=== PATIENT | female | born 1965 | race Caucasian/White ===

== ENCOUNTER 2020-08-08 01:59 | Observation (INO) | payer BC, SELFPAY ==
[2020-08-08] VITALS (32 sets, daily range): BP systolic 99–139; BP diastolic 48–94; PULSE 72–104; RESP 14–24; TEMP 36.2–37.1; O2SAT 90–100; BMI 20.7
--- NOTE | ~2020-08-08 | XR_ITS ---
EXAMINATION: XR chest 1V portable EXAM DATE: 08/08/2020 02:53 INDICATION: cough, COPD . TECHNIQUE: Portable AP frontal chest x-ray was obtained. There is no prior study for comparison. FINDINGS: Moderate chronic appearing hyperinflation. Narrow cardiac silhouette from hyperinflated samy gs. Scattered biapical opacities, appearance most consistent with scarring but superimposed acute inf ection not excludable. No pneumothorax or pleural effusion. There are no osseous abnormalities identi fied. IMPRESSION: 1. Biapical opacities probably scarring but superimposed acute infection not excludable. 2. Moderate hyperinflation. Reviewed, dictated and finalized at location A. CIATE PROFESSOR OF ART IMPRESSION: 1. Biapical opacities probably scarring but superimposed acute infection not e xcludable. 2. Moderate hyperinflation.
--- NOTE | 2020-08-08 02:14 | ECG_ITS ---
Measurements Intervals [place] Rate: 89 P: 79 ND: 144 QRS: 31 QRSD: 85 T: 56 QT: 351 QTc: 429 Interpretive Statements SINUS RHYTHM POSSIBLE LEFT ATRIAL ENLARGEMENT CANNOT RULE OUT SEPTAL INFARCT, AGE INDETERMINATE BASELINE ARTIFACT- I, II, III ABNORMAL ECG Electronically Signed On 08-08-2020 7:47:28 SUPPLIER RELATIONSHIP DIRECTOR by Berry Echols D.O.
[2020-08-08 02:21] LABS: Basophils Absolute Auto 0.1 K/mm3 (0.0-0.1); Basophils Percent Auto 0.8 % (0.2-1.2); Eosinophils Absolute Auto 0.3 K/mm3 (0-0.3); Hematocrit 41.6 % (37.0-47.0); Hemoglobin 14.7 g/dL (12.0-15.0); Immature Granulocyte Absolute 0.09 K/mm3 (0.00-0.031); Immature Granulocyte Percent A 0.6 % (0-0.5); Lymphocytes Percent Auto 38.7 % (18.3-44.2); Mean Corpuscular HGB Conc 35.3 g/dl (32-36); Mean Corpuscular Hemoglobin 33.1 pg (26-34); Mean Corpuscular Volume 93.7 fl (80-100); Monocytes Absolute Auto 1.1 K/mm3 (0.1-0.6); Monocytes Percent Auto 7.3 % (2.6-8.5); Neutrophils Absolute Auto 7.9 K/mm3 (1.3-6.7); Neutrophils Percent Auto 50.6 % (45.5-73.1); Platelet Count Result 380 k/mm3 (150-375); Red Blood Count 4.44 M/mm3 (4.2-5.4); Red Cell Distribution Width 12.1 % (11.5-14.5); White Blood Count 15.5 K/mm3 (4.5-10.0)
--- NOTE | 2020-08-08 02:26 | ED.GENADULT ---
HPI - General Adult General Chief complaint: Shortness of Breath/Dyspnea Stated complaint: sob Time Seen by Provider: 08/08/20 02:02 Source: RN notes reviewed History of Present Illness HPI narrative: Patient presents to emergency department from home for shortness of breath. Patient states symptoms have been ongoing for the past 5 days and progressively worsening associated with a cough is nonproductive patient states she does have a history of COPD and smokes approximately pack per day denies having any inhalers at home denies any fevers or chills chest pain abdominal pain nausea vomiting diarrhea or any other symptoms Related Data Home Medications Medication Instructions Recorded Confirmed No Home Medications 08/08/20 Allergies Allergy/AdvReac Type Severity Reaction Status Date / Time No Known Allergies Allergy Unverified 08/08/20 02:08 Review of Systems Review of Systems: Narrative: Gen.: Denies fevers or chills ENT: Denies congestion Respiratory: See HPI CV: Denies chest pain or palpitations GI: Denies abdominal pain nausea, emesis or diarrhea Musculoskeletal: Denies back pain or muscle pain Neuro: Denies numbness, tingling, weakness or focal weakness Skin: Denies rash Except as documented, all other systems reviewed and negative [facility] Past Medical History Medical History (Updated 08/08/20 @ 03:52 by Ti Caballero DO) COPD (chronic obstructive pulmonary disease) Social History Social History Smoking status: Heavy tobacco smoker Alcohol intake: current Gender identity (if verbalized by the patient): Female Sexual Orientation (if Verbalized by the Patient): Straight or Heterosexual Exam Narrative: Exam Narrative: APPEARANCE: Moderate respiratory distress nontoxic, resting in bed HEENT: Normocephalic, atraumatic OMM RESPIRATORY: Mild respiratory distress sitting upright speaking short phrases wheezing throughout the bilateral lung rao decreased breath sounds in the bases CARDIOVASCULAR: Regular rate and rhythm without murmurs rubs or gallops. ABDOMINAL: Soft, nontender, nondistended, no rebound or guarding MUSCULOSKELETAl: Moves all extremities. No clubbing, cyanosis or edema. Bilateral calves soft and nontender NEURO: Awake and alert. Following commands, speech normal, no focal deficits SKIN:: Warm, dry. Normal Color PSYCHIATRIC: Normal affect/mood, Course Course Emergency Course: Following breathing treatments repeat lung exam shows patient can have wheezing throughout bilateral lung rao Discussed with Dr. Vivas presentation work-up agrees with admission at this time recommends Covid swab Discussed with patient and family results of workup and diagnosis. Discussed need for admission. Patient and family understand and agree to current treatment plan Vital Signs Vital signs: Vital Signs Temperature 97.1 F L 08/08/20 02:03 Pulse Rate 95 08/08/20 02:03 Respiratory Rate 24 H 08/08/20 02:03 Blood Pressure 139/82 08/08/20 02:03 Pulse Oximetry 93 08/08/20 02:03 Temperature 97.1 F L 08/08/20 02:03 Pulse Rate 85 08/08/20 03:31 Respiratory Rate 18 08/08/20 03:31 Blood Pressure 114/86 08/08/20 03:30 Pulse Oximetry 96 08/08/20 03:31 Medical Decision Making Vital Signs Vital Signs: Vital Signs Temperature 97.1 F L 08/08/20 02:03 Pulse Rate 95 08/08/20 02:03 Respiratory Rate 24 H 08/08/20 02:03 Blood Pressure 139/82 08/08/20 02:03 Pulse Oximetry 93 08/08/20 02:03 Temperature 97.1 F L 08/08/20 02:03 Pulse Rate 85 08/08/20 03:31 Respiratory Rate 18 08/08/20 03:31 Blood Pressure 114/86 08/08/20 03:30 Pulse Oximetry 96 08/08/20 03:31 Lab Data Result diagrams: 08/08/20 02:16 08/08/20 02:16 Labs: Lab Results 08/08/20 08/08/20 Range/Units 02:16 02:16 WBC 15.5 H (4.5-10.0) K/mm3 RBC 4.44 (4.2-5.4) M/mm3 Hgb 14.7
[2020-08-08] MEDS: methylPREDNISolone SOD SUCC 125 MG VIAL IV PUSH (02:32)
[2020-08-08 02:35] LABS: Anion Gap 11 mmol/L (8-16); Blood Urea Nitrogen 7 mg/dL (7-17); Calcium 9.3 mg/dL (8.4-10.2); Carbon Dioxide 27 mmol/L (22-30); Chloride 95 mmol/L (98-107); Estimated CRCL calculation 77 ml/min; Estimated Glomerular Filt Rate > 60; Glucose 101 mg/dL (65-105); Potassium 3.6 mmol/L (3.4-5.0); Sodium 133 mmol/L (137-145)
[2020-08-08] MEDS: ALBUTEROL SULFATE NEB 2.5 MG/0.5 ML INH 5 MG INHALATION ×5 (02:49→15:22)
[2020-08-08] MEDS: IPRATROPIUM BR 0.02% INH SOLN 0.5 MG/2.5 ML VIAL INHALATION ×5 (02:49→15:22)
--- NOTE | 2020-08-08 03:39 | PM.IMHP ---
H&P: HPI History of Present Illness Date/Time: 08/08/20 03:39 Chief Complaint: Dyspnea and wheezing Narrative: Sarahi Win is a 55 year old female with past medical history of tobacco abuse, bronchitis presents to ED with complaints of dyspnea with nonproductive cough. Symptom onset was 5 days ago nonproductive cough. She smokes a pack per day and has been trying to wean down slowly. She denies fever or any other symptoms. She is trying to manage her wheezing, cough, dyspnea with old methylprednisolone that she froze when she had bronchitis years ago. She does not have any inhalers and actually has never been diagnosed with COPD. She does not currently have a primary care provider as well. She takes no home medications. She works at [employer] but does not have any occupational exposures. She has no sick contacts. He has been around anyone with COVID-19. No recent travels. Patient was adopted and has no known family history. In the ED: Patient presented with COPD exacerbation and given Solu-Medrol 125 mg, DuoNeb for respiratory distress respirations 24 and wheezing throughout. She is being tested for COVID-19. Leukocytosis 15.5. Chest x-ray looks clear, hyperinflated consistent with COPD. EKG showed normal sinus rhythm rate 89. Patient admitted for COPD exacerbation requiring IV steroids and breathing treatment. Review of Systems Review of Systems: Narrative: Constitutional: No Fever, No Chills, No Night Sweats, No Fatigue, No Malaise ENT/Mouth: No Hearing Changes, No Ear Pain, No Nasal Congestion, No Sinus Pain, No Hoarseness, No sore throat, No Rhinorrhea, No Swallowing Difficulty Eyes: No Eye Pain, No Redness, No Vision Changes Cardiovascular: No Chest Pain, No Palpitations, No Dyspnea on Exertion, No Orthopnea, No Claudication, No Edema Respiratory: Endorses dyspnea, nonproductive cough, wheezing. Gastrointestinal: No Nausea, No Vomiting, No Diarrhea, No Constipation, No Abdominal Pain, No Heartburn, No Hematochezia, No Melena Genitourinary: No Dysuria, No Urinary Frequency, No Hematuria, No Urinary Incontinence, No Urgency Musculoskeletal: No Arthralgias, No Myalgias, No Joint Swelling, No Joint Stiffness, No Back Pain Skin: No Skin Lesions, No Pruritis, No Hair Changes Neuro: No Weakness, No Numbness, No Paresthesias, No Loss of Consciousness, No Syncope, No Dizziness, No Headache Psych: No Anxiety/Panic, No Depression, No Insomnia Heme: No Bruising, No Bleeding Lymph: No Adenopathy Endocrine: No Polyuria, No Polydipsia, No Temperature Intolerance [facility] Past Medical History Medical History (Updated 08/08/20 @ 04:37 by Maureen Vivas DO) Bronchitis COPD (chronic obstructive pulmonary disease) Surgical History Surgical History (Updated 08/08/20 @ 04:37 by Maureen Vivas DO) History of appendectomy History of cholecystectomy Social History Social History (Updated 08/08/20 @ 04:39 by Maureen Vivas DO) Social History: Does not have a PCP. Independent, active, working. Smoking packs per day: 1.5 Smoking cigarettes per day: 30.0 Smoking status: Heavy tobacco smoker Alcohol intake: current Substance use: never Occupation/Education: occupation Additional occupation/education comments: Works at [employer] Gender identity (if verbalized by the patient): Female Sexual Orientation (if Verbalized by the Patient): Straight or Heterosexual Meds Home Medications and Allergies Home Medications Medication Instructions Recorded Confirmed Type No Home Medications 08/08/20 History Allergies Allergy/AdvReac Type Severity Reaction Status Date / Time No Known Allergies Allergy Unverified 08/08/20 02:08 Vital Signs Vital Signs - 24 hr 08/08/20 02:03 08/08/20 02:08 08/08/20 02:09 Temperature 36.2 C L Pulse Rate 95 88 87 Respiratory Rate 24 H 20 18 Blood Pressure 139/82 130/81 Pulse Oximetry 93 94 93 08/08/20 02:12 08/08/20 02:15 08/08/20
--- NOTE | 2020-08-08 04:55 | ADMGEN ---
This patient, Sarahi Win, was admitted to [facility] Surg Room 302-01. Patient/family oriented to hospital policies and general routines including ID bracelet, bed and alarms, visiting hours, pain management, procedures, bathroom and other care routines, personal items, smoking policy, room service/diet, and visiting hours. Information on how to activate the Rapid Response Team has been discussed. Patient/Family are encouraged to report perceived risks to care and to ask questions if they do not understand what they are told or what they should do.
[2020-08-08] MEDS: methylPREDNISolone SOD SUCC 125 MG VIAL 60 MG IV PUSH ×3 (06:24→17:19)
[2020-08-08] MEDS: ENOXAPARIN 40 MG/0.4 ML SYRINGE SUB-Q (09:11)
[2020-08-08] MEDS: guaiFENesin 600 MG/DEXTROMETHORPHAN 30 MG SR TAB 12 HR 1 TAB PO ×2 (09:11→21:39)
--- NOTE | 2020-08-08 11:41 | PM.IMPN ---
Progress Note: A&P Assessment and Plan (1) Acute exacerbation of chronic obstructive airways disease: Code(s): J44.1 - Chronic obstructive pulmonary disease with (acute) exacerbation Status: Acute Assessment and Plan: Clinical picture is consistent with COPD exacerbation based on smoking history and wheezing. Patient was in respiratory distress, tachypneic and labored requiring 125 mg IV Solu-Medrol in the ED. She is not hypoxic and has been maintaining adequate O2 saturation on room air. She complained she is having difficulty exhaling which would be consistent with emphysema. CXR showed moderate chronic appearing hyperinflation. Continue IV Solu-Medrol 60 mg; wean to q8h. Associated leukocytosis noted. DuoNebs q.6 hours holding off antibiotics with no fever or sputum production checking COVID-19 due to cough and respiratory symptoms; test is pending Incentive spirometer q.1 hour Mucinex for cough (2) COPD (chronic obstructive pulmonary disease): Code(s): J44.9 - Chronic obstructive pulmonary disease, unspecified Status: Acute Assessment and Plan: Patient reports no prior diagnosis of COPD, however clinical picture is highly convincing as well as CXR. She will benefit from outpatient PFTs and she will need to establish with a primary care provider. Her previous PCP retired and she has not had consistent follow-up with the provider since that time. She may benefit from referral to pulmonology. She will need to be prescribed a rescue inhaler and likely a maintenance inhaler. We will evaluate her insurance to find an affordable inhaler. (3) Tobacco abuse: Code(s): Z72.0 - Tobacco use Status: Acute Assessment and Plan: Patient smokes 1 and half packs per day. She has tried quitting in the past and has been unsuccessful. Tried Wellbutrin. Continue to encourage smoking cessation Nicotine patches is available as needed (4) Person under investigation for COVID-19: Code(s): Z20.828 - Contact with and (suspected) exposure to other viral communicable diseases Status: Acute Assessment and Plan: Patient has been tested for COVID-19 given respiratory symptoms. She denies exposure to known COVID-19 positive contacts. She reports compliance with masking and distancing. She is maintaining adequate O2 saturations on room air. CXR findings are not consistent with COVID. Continue isolation precautions while awaiting results Subjective Date/time seen: 08/08/20 11:41 Interval history: Date of service: 08/08/2020 Sarahi Win is a 55-year-old female with history of bronchitis and COPD who is seen in follow-up for COPD exacerbation. She states that she is feeling 100% better today. Her breathing has improved significantly. She denies significant dyspnea. She is able to ambulate around the room without any difficulty or shortness of breath. She is still coughing but is no longer having sputum production. She previously endorsed white sputum production with no odor. She endorses orthopnea but denies PND. She does still feel that she is wheezing. She also endorses sinus congestion. Previously complained of rhinorrhea that has resolved. She has no additional concerns at this time. She denies nausea, vomiting, fever, chills, dizziness, lightheadedness, dysuria, diarrhea, abdominal pain, weakness. Review of Systems Review of Systems: All systems reviewed & are unremarkable except as noted in HPI and below Exam Narrative: Exam Narrative: Ms. Win is a well-nourished, well-appearing 55-year-old female who is lying semi recumbent in bed. She appears comfortable and is in NARD. HR 72, BP 114/86, RR 19, T 97.8?, 92% on room air Neuro: awake, alert and oriented x4, speech clear, no focal neuro deficits noted HEENMT: normocephalic, atraumatic, EOMI, sclerae anicteric, moist oral mucosa, tongue midline, nares patent Neck: supple, no lymphad
[2020-08-08] MEDS: ACETAMINOPHEN 325 MG TABLET 650 MG PO (21:40)
[2020-08-08 22:25] LABS: SARS-CoV-2 RNA PCR Negative
--- NOTE | 2020-08-08 23:04 | PCRCNOTE ---
Window of time for administration has passed. See next scheduled administration.
[2020-08-09] VITALS (7 sets, daily range): BP systolic 104–129; BP diastolic 54–67; PULSE 67–80; RESP 18–20; TEMP 36.2–37.1; O2SAT 94–98
[2020-08-09] MEDS: methylPREDNISolone SOD SUCC 125 MG VIAL 60 MG IV PUSH ×2 (00:03→06:06)
[2020-08-09] MEDS: ALBUTEROL SULFATE NEB 2.5 MG/0.5 ML INH 5 MG INHALATION ×2 (02:51→07:49)
[2020-08-09] MEDS: IPRATROPIUM BR 0.02% INH SOLN 0.5 MG/2.5 ML VIAL INHALATION ×2 (02:52→07:49)
[2020-08-09 06:30] LABS: Basophils Percent Auto 0.2 % (0.2-1.2); Hematocrit 38.5 % (37.0-47.0); Hemoglobin 13.3 g/dL (12.0-15.0); Immature Granulocyte Absolute 0.32 K/mm3 (0.00-0.031); Immature Granulocyte Percent A 1.6 % (0-0.5); Lymphocytes Absolute Auto 1.11 K/mm3 (0.9-3.2); Lymphocytes Percent Auto 5.7 % (18.3-44.2); Mean Corpuscular HGB Conc 34.5 g/dl (32-36); Mean Corpuscular Hemoglobin 32.8 pg (26-34); Mean Corpuscular Volume 94.8 fl (80-100); Mean Platelet Volume 8.4 fl (7.4-10.4); Monocytes Absolute Auto 0.8 K/mm3 (0.1-0.6); Monocytes Percent Auto 3.9 % (2.6-8.5); Neutrophils Absolute Auto 17.3 K/mm3 (1.3-6.7); Neutrophils Percent Auto 88.6 % (45.5-73.1); Platelet Count Result 378 k/mm3 (150-375); Red Blood Count 4.06 M/mm3 (4.2-5.4); Red Cell Distribution Width 12.2 % (11.5-14.5); White Blood Count 19.5 K/mm3 (4.5-10.0)
[2020-08-09 06:55] LABS: Alanine Aminotransferase 22 U/L (4-35); Albumin Level 3.6 g/dL (3.5-5.1); Alkaline Phosphatase 54 U/L (38-126); Anion Gap 6 mmol/L (8-16); Aspartate Amino Transferase 26 U/L (14-36); Bilirubin,Total 0.2 mg/dL (0.2-1.3); Blood Urea Nitrogen 11 mg/dL (7-17); Calcium 9.3 mg/dL (8.4-10.2); Carbon Dioxide 25 mmol/L (22-30); Chloride 102 mmol/L (98-107); Estimated CRCL calculation 76 ml/min; Estimated Glomerular Filt Rate > 60; Glucose 147 mg/dL (65-105); Potassium 4.2 mmol/L (3.4-5.0); Sodium 133 mmol/L (137-145)
[2020-08-09] MEDS: ENOXAPARIN 40 MG/0.4 ML SYRINGE SUB-Q (08:23)
[2020-08-09] MEDS: guaiFENesin 600 MG/DEXTROMETHORPHAN 30 MG SR TAB 12 HR 1 TAB PO (08:24)
[2020-08-09] MEDS: ACETAMINOPHEN 325 MG TABLET 650 MG PO (08:28)
[2020-08-09] MEDS: predniSONE 20 MG TABLET 60 MG PO (11:20)
--- NOTE | 2020-08-09 13:00 | PM.DS ---
DS: Admitting Diagnosis Admitting Diagnosis Admitting Diagnosis: Dyspnea DS: Discharge Diagnosis Discharge Diagnosis (1) Acute exacerbation of chronic obstructive airways disease: Code(s): J44.1 - Chronic obstructive pulmonary disease with (acute) exacerbation Status: Acute Assessment and Plan: Clinical picture is consistent with COPD exacerbation based on smoking history and wheezing. Patient was in respiratory distress, tachypneic and labored requiring 125 mg IV Solu-Medrol in the ED. She was not hypoxic and maintained adequate O2 saturation on room air. She complained of difficulty with complete exhaling which would be consistent with emphysema. CXR showed moderate chronic appearing hyperinflation. she was transition to IV Solu-Medrol 60 mg and weaned to p.o. prednisone 60 mg. She will continue a p.o. prednisone taper for 15 days. She was treated with nebulized breathing treatments. No antibiotics administered as she had no fever or sputum production. Supportive care provided with incentive spirometry and expectorants. (2) COPD (chronic obstructive pulmonary disease): Code(s): J44.9 - Chronic obstructive pulmonary disease, unspecified Status: Acute Assessment and Plan: Patient reports no prior diagnosis of COPD, however clinical picture is highly convincing as well as CXR. She will benefit from outpatient PFTs and referral to pulmonology per her PCP. she has no home medications. She was given prescription for rescue inhaler. She was also given a prescription for a maintenance inhaler. I prescribed her Spiriva, however there was some issues with insurance coverage, and it is unclear if the patient will be able to afford this medication. A coupon was provided to her. I discussed with care coordination, respiratory therapy, and patient's PCP to find suitable options for patient. PCP is aware of situation and she will need to follow-up as an outpatient. If she is not able to get Spiriva, she will need to be started on a suitable alternative maintenance inhaler per PCP. (3) Tobacco abuse: Code(s): Z72.0 - Tobacco use Status: Acute Assessment and Plan: Patient reports smoking 1.5 packs per day for many years. Recently she has tried to cut down and has slowly weaned herself to 8 cigarettes per day. I congratulated her for cutting down. She does want to quit smoking altogether. We discussed at length that quitting smoking Is necessary for COPD and she verbalized understanding. She does not wish to try nicotine patches or other nicotine replacement therapy at this time. I educated her on smoking cessation for 12 minutes. (4) COVID-19 ruled out by laboratory testing: Code(s): Z03.818 - Encounter for observation for suspected exposure to other biological agents ruled out Status: Acute Assessment and Plan: Patient was tested for COVID-19 given respiratory symptoms. She denied exposure to known COVID-19 positive contacts. She reports compliance with masking and distancing. Negative result on 08/08/2020. DS: Summary Hospital Course Reason for hospitalization: COPD exacerbation Hospital Course: date of admission: 08/08/2020 date of discharge: 08/09/2020 Sarahi Win is a 55-year-old female with history of bronchitis and COPD who presented to the emergency department on 08/08/2020 with complaints of increased shortness of breath ongoing for 5 days with progressively worsened nonproductive cough. upon presentation to the ED, she was mildly tachypneic with additional vital signs stable, she had mild leukocytosis, electrolytes were stable, and chest x-ray showed moderate hyperinflation and biapical opacities most likely scarring. She was admitted to the hospitalist service for further evaluation and management. please see above for further details. She was treated with IV steroids and bronchodilators and her symptoms improved. Leukocytosis second
== END 2020-08-09 14:30 | disposition home or self-care (01) ==
LOC: ANHED 03:52 → ANH3MEDSUR 04:09
PROVIDERS: Admitting Provider Student in an Organized Health Care Education/Training Program; Emergency Provider Emergency Medicine; PCP Family Medicine; Visit Provider Family Medicine
DX: J44.1 Chronic obstructive pulmonary disease with (acute) exacerbation (principal); J44.9 Chronic obstructive pulmonary disease, unspecified; F17.210 Nicotine dependence, cigarettes, uncomplicated; Z20.828 Contact with and (suspected) exposure to other viral communicable diseases
CPT/HCPCS: 36415; 71045; 80048; 80053; 85025; 87635; 93005; 94640; 96372; 96374; 96376; 99285; A9270; C9803; G0378; J1650; J2930; J7512; U0003

== ENCOUNTER 2024-05-21 10:28 | Emergency (ER) | payer BC, SELFPAY ==
--- NOTE | ~2024-05-21 | XR_ITS ---
EXAMINATION: XR chest 2V DATE: 05/21/2024 11:27 INDICATION: Cough and shortness of breath. TECHNIQUE: Frontal and lateral views of the chest were obtained. COMPARISON: Chest single view 08/08/2020, CT abdomen and pelvis 01/02/2017 FINDINGS: There is mild scarring at the lung apices. No pleural effusion or pneumothorax. The heart s ize is normal. Surgical clips in the right upper quadrant are likely from cholecystectomy. IMPRESSION: 1. Stable mild scarring at the lung apices. Reviewed, dictated and finalized at location A.
[2024-05-21 10:43] VITALS: BP 147/82; PULSE 101; RESP 18; TEMP 36.6; O2SAT 95
--- NOTE | 2024-05-21 11:02 | ED.URI ---
HPI - URI/Sore Throat General Chief Complaint: Upper Respiratory Infection Stated Complaint: SOB Time Seen by Provider: 05/21/24 11:02 Source: patient, RN notes reviewed and old records reviewed Mode of arrival: ambulatory Limitations: no limitations History of Present Illness HPI Narrative: 59-year-old female presents to the [facility] with complaints of shortness of breath. Patient is a smoker. Per medical record has a history of COPD. Shortness of breath started approximately 10 days ago Has used [id number] Primatene mist and Mucinex Related Data Allergies Allergy/AdvReac Type Severity Reaction Status Date / Time No Known Allergies Allergy Verified 05/21/24 11:18 Review of Systems Review of Systems: All systems reviewed & are unremarkable except as noted in HPI and below Constitutional: Constitutional: Reports no additional constitutional complaints Eyes: Eyes: Reports no additional eye complaints ENT: Reports system reviewed and no additional complaints, except as documented Cardiovascular: Cardiovascular: Reports no additional cardiovascular complaints, Denies chest pain and Denies dyspnea Respiratory: Respiratory: Reports as per HPI, Reports chest congestion, Reports cough and Reports dyspnea Musculoskeletal: Musculoskeletal: Reports no additional musculoskeletal complaints Integumentary/Breasts: Skin/Breast: Reports system reviewed and no additional complaints, except as docu Neurologic: Reports system reviewed and no additional complaints, except as documented Psychiatric: Psychiatric: Reports no additional psychiatric complaints Allergic/Immunologic: Allergic/Immunologic: Reports no additional allergic/immunologic complaints [facility] Past Medical History Medical History Bronchitis COPD (chronic obstructive pulmonary disease) Surgical History Surgical History History of appendectomy (~12/2016) History of cholecystectomy (~1996) Social History Social History Social History: Does not have a PCP. Independent, active, working. Smoking packs per day: 1.5 Smoking cigarettes per day: 30.0 Years smoked: 40 Smoking pack-years: 60.00 Smoking status: Heavy tobacco smoker Tobacco type: cigarettes Alcohol intake: current Drinks per week: 21 Substance use: never Other substance usage details: Drinks 3 beers per day. Last consumption 08/07/20 Occupation/Education: occupation Additional occupation/education comments: Works at [employer] Gender identity (if verbalized by the patient): Female Sexual Orientation (if Verbalized by the Patient): Straight or Heterosexual Spiritual care concerns: No Comments At the time of my signature, I reviewed and agree with the nursing past medical, surgical, social, and family history. There is no relevant family history pertinent to the patient complaint. Exam Const: General: cooperative, healthy appearing, comfortable, no acute distress, well developed, alert and well nourished Nutritional Appearance: well nourished Orientation/consciousness: patient oriented x3 Limitations: no limitations HENMT: Head: normal to inspection Ears: hearing grossly normal bilaterally and external ears normal Face/Nose/Sinus: Normal external nose present, normal facial exam and face symmetric Face and sinus: normal facial exam and face symmetric Eyes: General: appearance normal, both eyes and all related structures Alignment and Position: alignment normal Periorbital: periorbital findings normal Neck: Neck: normal visual inspection, full ROM, no lymphadenopathy and no meningeal signs Chest: Chest palpation & inspection: normal inspection of the chest Resp: Effort & Inspection: normal respiratory effort and able to speak in complete sentences Auscultation: no crackles, no rales, no rhonchi and wh
[2024-05-21 11:10] VITALS: PULSE 101; RESP 18; O2SAT 95
[2024-05-21] MEDS: IPRATROPIUM 0.5 MG/ALBUTEROL SULFATE 2.5 MG AMPUL.NEB 3 ML INHALATION (11:38)
[2024-05-21 11:40] VITALS: PULSE 100; RESP 18; O2SAT 97
== END 2024-05-21 12:03 | disposition home or self-care (01) ==
PROVIDERS: Emergency Provider Nurse Practitioner
DX: J44.1 Chronic obstructive pulmonary disease with (acute) exacerbation (principal); F17.210 Nicotine dependence, cigarettes, uncomplicated
CPT/HCPCS: 71046; 94640; 99213; G0463

== ENCOUNTER 2025-05-19 13:51 | Emergency (ER) | payer BC, SELFPAY ==
[2025-05-19 14:06] VITALS: BP 131/83; PULSE 79; RESP 16; TEMP 36.8; O2SAT 98
--- NOTE | 2025-05-19 14:50 | ED_ITS ---
HPI - URI/Sore Throat General Chief Complaint: Upper Respiratory Infection Stated Complaint: SINUS CONGESTION Time Seen by Provider: 05/19/25 14:20 Source: patient and RN notes reviewed Mode of arrival: ambulatory Limitations: no limitations History of Present Illness HPI Narrative: 60-year-old female presents Express Care complaining of upper respiratory symptoms for 4 days. Patient said maybe symptoms started a week ago started with a runny nose and cough. Over the weekend she developed worsening congestion, primarily left-sided facial pressure, pain or teeth, mucopurulent nasal drainage, more productive cough. Patient reports her cough is more viscous and purulence than normal. Patient denies chest pain, shortness of breath, wheezing, nausea vomiting, diarrhea or any other symptoms. Patient says she has a COPD history but does not take any medications for it. Related Data Allergies Allergy/AdvReac Type Severity Reaction Status Date / Time No Known Allergies Allergy Verified 05/19/25 14:04 Review of Systems Review of Systems: CONSTITUTIONAL: Denies fever, chills, or sweats. EYES: Denies visual changes, redness, or discharge. ENT: Positive for rhinorrhea, congestion. Negative for sore throat, or otalgia. CARDIOVASCULAR: Denies chest pain, palpitations, or edema. RESPIRATORY: Positive for cough. Negative for wheezing or dyspnea. GASTROINTESTINAL: Denies abdominal pain, nausea, vomiting, or diarrhea. GENITOURINARY: Denies dysuria or hematuria. SKIN: Denies rash or itching. MUSCULOSKELETAL: Denies back pain, joint pain, or myalgia. NEUROLOGIC: Denies headache, numbness, or weakness. PSYCHIATRIC: Denies anxiety or depression. All other systems reviewed are negative, except as documented in HPI. FORMERLY [facility] Past Medical History Medical History COPD (chronic obstructive pulmonary disease) Bronchitis Surgical History Surgical History History of appendectomy (~12/2016) History of cholecystectomy (~1996) Social History Social History Social History: Does not have a PCP. Independent, active, working. Smoking packs per day: 1.5 Smoking cigarettes per day: 30.0 Years smoked: 40 Smoking pack-years: 60.00 Smoking status: Heavy tobacco smoker Tobacco type: cigarettes Alcohol intake: current Drinks per week: 21 Substance use: never Other substance usage details: Drinks 3 beers per day. Last consumption 08/07/20 Occupation/Education: occupation Additional occupation/education comments: Works at [employer] Gender identity (if verbalized by the patient): Female Sexual Orientation (if Verbalized by the Patient): Straight or Heterosexual Spiritual care concerns: No Comments At the time of my signature, I reviewed and agree with the nursing past medical, surgical, social, and family history. There is no relevant family history pertinent to the patient complaint. Exam Narrative: GENERAL: This is a well-nourished, well-developed adult, in no apparent distress. They are non ill-appearing, nontoxic appearing. HEAD: normocephalic, atraumatic. EYES: Sclera clear/white. Conjunctiva normal. Vision is grossly intact. Extraocular movements intact EARS: External ears normal, auditory canals clear and without drainage, TMs norm al without perforation. Hearing grossly intact. NOSE: External nose normal with no obvious nasal discharge, nasal turbinates erythematous, no rhinorrhea. THROAT: Mucous membranes moist, posterior pharynx boggy without erythema. Postnasal drip present.. Uvula midline. NECK: Neck supple, non-tender without lymphadenopathy, masses or thyromegaly. CARDIOVASCULAR: Regular rate and rhythm without murmurs, gallops, or rubs. RESPIRATORY: Expiratory wheezes throughout. Breath sounds equal bilaterally. No rales, or rhonchi. Respiratory rate normal, respiratory effort nonlabored, no respiratory distress SKIN: warm, Dry, intact with no suspicious lesions or rash, good texture and turgor. NEURO: awake, alert, and oriented to person, place and time. There were no obvious focal neurologic abnormalities. EXTREMITIES: No joint tenderness, effusion, or edema noted. Course Course Emergency Course: Portions of this record may have been created with voice recognition software Level of Care: Express Care Visit Vital Signs Vital signs: Vital Signs Temperature 98.2 F 05/19/25 14:06 Pulse Rate 79 05/19/25 14:06 Respiratory Rate 16 05/19/25 14:06 Blood Pressure 131/83 05/19/25 14:06 Pulse Oximetry 98 05/19/25 14:06 Temperature 98.2 F 05/19/25 14:06 Pulse Rate 79 05/19/25 14:06 Respiratory Rate 16 05/19/25 14:06 Blood Pressure 131/83 05/19/25 14:06 Pulse Oximetry 98 05/19/25 14:06 Reviewed MDM - URI/Sore Throat MDM Narrative Medical decision making narrative: Patient is wheezing throughout her lungs, patient is having cardinal signs of a COPD exacerbation. Patient in no respiratory distress, vital signs hemodynamically stable, no tachypnea, normal oxygen saturations. Patient nontoxic-appearing. Will prescribe patient course of prednisone and Augmentin along with albuterol for wheezing. Discussed physical exam findings. Advised supportive measures and signs/symptoms to go to the ER. Pt is appropriate for outpt treatment and f/u. Differential Diagnosis Differential diagnosis: Likely upper respiratory infection, sinusitis, viral infection, bronchitis and other (COPD exacerbation, pneumonia) Critical Care Time Critical Care Time Critical Care Time: No Discharge Plan Discharge Clinical Impression: Acute exacerbation of chronic obstructive airways disease Patient Disposition: Home Condition: Stable Instructions: Antibiotic Form, COPD (Chronic Obstructive Pulmonary Disease) (ED) Additional Instructions: Use the albuterol inhaler as directed use as needed for wheezing or shortness of breath. Take the prednisone as directed. The antibiotic as directed. Rest and drink plenty of fluids. Tylenol or ibuprofen as needed for pain or fevers. Follow instructions the bottle. Follow-up with PCP in 3-5 days. Please go to the ER if you develop worsening shortness of breath, breathing problems not controlled with inhaler, chest pains, nausea, vomiting, or any serious concerns. Patient Language: Romanian Prescriptions: New prednisone 20 mg tablet 40 mg PO DAILY 5 Days Qty: 10 0RF albuterol sulfate [Ventolin HFA] 90 mcg/actuation HFA aerosol inhaler 2 puff inhalation QID PRN (Reason: shortness of breath or wheezing) Qty: 8.5 0RF amoxicillin-pot clavulanate 875-125 mg tablet 1 tablet PO Q12H 7 Days Qty: 14 0RF No Action (DME) Aerochamber MV Spacer See Rx Instructions .Route Qty: 1 0RF Rx Instructions: As directed Follow-up/Referrals: PHYSICIAN,FAMILY SERVICES MANAGER [Primary Care Provider, Internal Medicine] Time of Disposition: 14:42
== END 2025-05-19 14:49 | disposition home or self-care (01) ==
DX: J44.1 Chronic obstructive pulmonary disease with (acute) exacerbation (principal); F17.210 Nicotine dependence, cigarettes, uncomplicated
CPT/HCPCS: 99213; G0463

== ENCOUNTER 2025-05-23 12:07 | Emergency (ER) | payer BC, SELFPAY ==
--- NOTE | ~2025-05-23 | XR_ITS ---
Examination: XR chest 2V Clinical History: Cough Comparison: 05/21/2024 Technique: PA and Lateral Findings: Cardiomediastinal silhouette normal size and configuration. Chronic hyperinflation and interstitial changes. Biapical scarring. Prominent right suprahilar interstitial markings. No acute bony abnormality. IMPRESSION: 1. No acute cardiopulmonary findings. 2. Nonetheless, recommend CT chest to better evaluate right suprahilar opacity. Reviewed, dictated and finalized at location R. IMPRESSION: 1. No acute cardiopulmonary findings. 2. Nonetheless, recommend CT chest to better evaluate right suprahilar opacity .
[2025-05-23 12:17] VITALS: BP 133/77; PULSE 74; RESP 16; TEMP 36.4; O2SAT 96
--- NOTE | 2025-05-23 12:19 | ED.URI ---
HPI - URI/Sore Throat General Chief Complaint: Upper Respiratory Infection Stated Complaint: SOB/Fatigue Time Seen by Provider: 05/23/25 12:33 Source: patient and RN notes reviewed Mode of arrival: ambulatory Limitations: no limitations History of Present Illness HPI Narrative: 60-year-old female with history of COPD presents with concern of for ongoing shortness of breath, cough, nasal congestion and drainage. She was seen 5 days ago and prescribed Augmentin, albuterol and prednisone. She has finished the prednisone and she is 5 days into the a antibiotic. She has been using the inhaler as needed. She reports the sinus symptoms are somewhat improved but she is having no improvement in her breathing symptoms. Total illness has been 9 days MD elicited complaint: cough, nasal congestion and sinus pain Related Data Allergies Allergy/AdvReac Type Severity Reaction Status Date / Time No Known Allergies Allergy Verified 05/23/25 12:36 Review of Systems Review of Systems: CONSTITUTIONAL: Reports malaise, chills, feeling feverish EYES: Denies visual changes, redness, or discharge. ENT: Reports rhinorrhea, congestion, sinus pain CARDIOVASCULAR: Denies chest pain, palpitations, or edema. RESPIRATORY: Reports cough, dyspnea. GASTROINTESTINAL: Denies abdominal pain, nausea, vomiting, diarrhea SKIN: Denies rash or itching. MUSCULOSKELETAL: Reports myalgia. NEUROLOGIC: Denies headache. All systems reviewed & are unremarkable except as noted in HPI and below PMFSH Past Medical History Medical History COPD (chronic obstructive pulmonary disease) Bronchitis Surgical History Surgical History History of appendectomy (~12/2016) History of cholecystectomy (~1996) Social History Social History Social History: Does not have a PCP. Independent, active, working. Smoking packs per day: 1.5 Smoking cigarettes per day: 30.0 Years smoked: 40 Smoking pack-years: 60.00 Smoking status: Heavy tobacco smoker Tobacco type: cigarettes Alcohol intake: current Drinks per week: 21 Substance use: never Other substance usage details: Drinks 3 beers per day. Last consumption 08/07/20 Occupation/Education: occupation Additional occupation/education comments: Works at [employer] Gender identity (if verbalized by the patient): Female Sexual Orientation (if Verbalized by the Patient): Straight or Heterosexual Spiritual care concerns: No Comments At time of signature, agree with nursing past medical, surgical, social and family history. There is no relevant family history pertinent to the presenting complaint Exam Narrative: GENERAL: Well-appearing, well-nourished, and in no acute distress. HEAD: Normocephalic EYES: PERRLA, conjunctivae clear ENT: Nares clear, turbinates edematous and erythematous, clear discharge. Mucous membranes moist. TM pearly rios with dull light reflex bilaterally; no tragal tenderness. Oropharynx not erythematous without lesions. Tonsils not enlarged and without exudate, no drooling, no hoarseness, no trismus, uvula midline. NECK: Supple. No lymphadenopathy CHEST: Inspiratory and expiratory wheeze, breath sounds equal. No rhonchi, rales, or stridor. No respiratory distress, speaks in full sentences. HEART: Regular rate and rhythm. No murmur heard. SKIN: Warm, dry, no rash. NEURO: Alert and oriented x3. PSYCH: Normal mood and affect Course Course Emergency Course: Patient is aware of diagnosis, understands and agrees to treatment plan. Anticipatory guidance given. Patient agrees to follow-up as directed and is aware of reasons to seek care at the emergency department. Portions of this record may have been created with voice recognition software Level of Care: Express Care Visit Vital Signs Vital signs: Vital Signs Temperature 97.5 F L 05/23/25 12:17 Pulse Rate 74 05/23/25 12:17 Respiratory Rate 16 05/23/25 12:17 Blood Pressure 133/77 05/23/25 12:17 Pulse Oximetry 96 05/23/25 12:17 Oxygen Delivery Room Air 05/23/25 12:17 Temperature 97.5 F L 05/23/25 12:17 Pulse Rate 74 05/23/25 12:17 Respiratory Rate 16 05/23/25 12:17 Blood Pressure 133/77 05/23/25 12:17 Pulse Oximetry 96 05/23/25 12:17 Oxygen Delivery Room Air 05/23/25 12:17 Reviewed. MDM - URI/Sore Throat MDM Narrative Medical decision making narrative: Differential diagnosis considered: Hilario virus, strep pharyngitis, allergic rhinitis, upper respiratory tract infection, sinusitis, rhinosinusitis, nasopharyngitis. viral pharyngitis, otitis media, otitis externa, pneumonia, bronchitis, viral cough syndrome, viral syndrome, and influenza. Exam findings show no acute concerns or changes; patient is non-toxic appearing and is in no distress. Patient is appropriate for outpatient treatment and follow-up. Lab Data Attestation: I reviewed the patient's lab results. Imaging Data My impression: Images reviewed, interpreted by radiologist, agree, see report. Radiologist's impression: Clinical History: Cough Comparison: 05/21/2024 Technique: PA and Lateral Findings: Cardiomediastinal silhouette normal size and configuration. Chronic hyperinflation and interstitial changes. Biapical scarring. Prominent right suprahilar interstitial markings. No acute bony abnormality. IMPRESSION: 1. No acute cardiopulmonary findings. 2. Nonetheless, recommend CT chest to better evaluate right suprahilar opacity. Critical Care Time Critical Care Time Critical Care Time: No Discharge Plan Discharge Clinical Impression: Acute exacerbation of chronic obstructive airways disease Patient Disposition: Home Condition: Stable Instructions: Antibiotic Form Additional Instructions: 1) Please follow-up with your primary care doctor in the next 1-2 days for follow-up with your chest x-ray. 2) If you have any worsening of symptoms or any other urgent concerns please go to the ER. 3) Please discontinue Augmentin and take new medications as prescribed and continue taking your home medications as usual. 4) Please read and follow information included in discharge instructions. Patient Language: Telugu Prescriptions: New doxycycline monohydrate 100 mg tablet 100 mg PO BID 7 Days Qty: 14 0RF methylprednisolone [Medrol (Emery)] 4 mg tablets,dose pack See Rx Instructions .ROUTE .COMPLEX Qty: 21 0RF Rx Instructions: orally per package directions No Action prednisone 20 mg tablet 40 mg PO DAILY 5 Days Qty: 10 0RF albuterol sulfate [Ventolin HFA] 90 mcg/actuation HFA aerosol inhaler 2 puff inhalation QID PRN (Reason: shortness of breath or wheezing) Qty: 8.5 0RF amoxicillin-pot clavulanate 875-125 mg tablet 1 tablet PO Q12H 7 Days Qty: 14 0RF (DME) Aerochamber MV Spacer See Rx Instructions .Route Qty: 1 0RF Rx Instructions: As directed Follow-up/Referrals: PHYSICIAN,CUSTOMER RESOURCE SPECIALIST [Primary Care Provider, Internal Medicine] Time of Disposition: 13:31
[2025-05-23 12:20] VITALS: PULSE 74; RESP 16; O2SAT 96
[2025-05-23] MEDS: IPRATROPIUM 0.5 MG/ALBUTEROL SULFATE 2.5 MG (BASE) AMPUL.NEB 3 ML INHALATION (13:08)
[2025-05-23 13:30] VITALS: PULSE 76; RESP 16; O2SAT 95
== END 2025-05-23 13:50 | disposition home or self-care (01) ==
PROVIDERS: Emergency Provider Nurse Practitioner
DX: J44.1 Chronic obstructive pulmonary disease with (acute) exacerbation (principal); F17.210 Nicotine dependence, cigarettes, uncomplicated
CPT/HCPCS: 71046; 94640; 99213; G0463